=== PATIENT | female | born 1955 | race Caucasian/White ===

== ENCOUNTER 2016-06-29 01:44 | Inpatient (IN) | payer MEDICARE, MEDICAID ==
[~2016-06-29 01:44] MED LIST: ACETAMINOPHEN325 M2 PO; ADDERALL 10 MG10 MG; ADDERALL 15 MG15 MG; ADDERALL 20 MG20 MG; ADDERALL 30 MG30 MG PO; ADDERALL XR 3030 M1 PO; ADDERALL XR 3030 MG PO; ALBUTEROL17 GM; ALLEGRA ALLERG180 MG PO; ALLEGRA180 MG PO; ALLEGRA30 MG; ALLEGRA30 MG PO; ALLEGRA30 MG/5 ML; ALOE VERA237 ML PO; ALPRAZOLAM1 MG PO; AMOXICILLIN500 M PO; ARMOUR THYROID15 MG; ASPIRIN LOW STR81 MG PO; ASPIRIN81 M1 CH; ATARAX25 MG PO; ATARAX50 MG PO; ATENOLOL PO; ATENOLOL50 MG; ATENOLOL50 MG PO; AUGMENTIN 875-11 TAB PO; BACLOFEN; BACLOFEN10 MG; BACLOFEN10 MG PO; BACLOFEN20 M1 PO; BACLOFEN20 MG; BACLOFEN20 MG PO; BENADRYL ALLERG25 M PO; BENADRYL25 MG PO; BP MED; BRILINTA90 M1 PO; BUTABARBITAL; CATAPRES-T0.1 MG/24; CELEBREX100 MG PO; CLARITIN10 M2 PO; CLARITIN10 M6 PO; COLACE; CORTISPORIN EAR10 M RIGHT EAR; COUMADIN2 MG PO; COUMADIN5 MG; CYMBALTA30 MG; CYMBALTA60 MG; DEXTROAMPHETAMI15 MG PO; DIAZEPAM10 MG; DIAZEPAM10 MG PO; DOCUSATE SODIU1 EACH PO; DOXEPIN HCL25 M1 PO; DOXEPIN HCL50 MG PO; DURAGESIC1 PATC; DURAGESIC1 PATC TOP; DURAGESIC1 PATCH .; DURAGESIC1 PATCH .7 TOP; EFFEXOR XR75 MG PO; EFFEXOR50 MG; EFFEXOR75 MG PO; ELIMITE60 GM TP; EMBEDA 30-1.21 EACH PO; EPINEPHRIN0.15 MG/0. IM; FAMOTIDINE20 MG PO; FENTANYL C100 MCG/2; FENTANYL C100 MCG/2 IV; FEXOFENADINE H180 MG PO; FLEXERIL10 MG PO; FLONASE ALLERG9.9 ML NS; FLUOXETINE HCL60 MG PO; HYDROCODONE/APA1 TAB; IMITREX25 MG PO; KADIAN PO; KEFLEX500 MG PO; LAMICTAL100 MG PO; LEVAQUIN250 MG PO; LEVOTHYROXINE25 MCG; LEVOTHYROXINE25 MCG PO; LINDANE60 ML TP; LIPITOR80 M1 PO; LOPRESSOR50 MG; LUNESTA; LUNESTA2 MG; LYRICA50 MG PO; METOPROLOL PO; MONTELUKAST SOD10 M2 PO; MORPHINE SU15 MG/TAB PO; MORPHINE SULFAT15 MG PO; MORPHINE SULFAT30 M9 PO; NASONEX; NASONEX17 GM; NASONEX17 GM NS; NITROFURANTOIN100 M3 PO; NORCO 10/325 TA1 TAB; NORCO 10/325 TA1 TAB PO; NORCO 5/325 TAB1 TAB PO; OMNICEF300 MG PO; ORAP2 MG PO; OXYCONTIN10 MG; OXYCONTIN60 MG PO; OXYCONTIN80 M1 PO; PEPCID20 MG; PEPCID20 MG PO; PEPCID40 MG; PEPCID40 MG PO; PERCOCET 10 MG/1 TAB PO; PERCOCET 5/3251 TAB PO; PHENERGAN; PHENERGAN12.5 MG PO; PHENERGAN25 MG/SUPP; PHENERGAN25 MG/SUPP RC; PIMOZIDE PO; PROAIR HFA8.5 GM INH; PROTONIX20 MG; PROTONIX40 M1 PO; PROTONIX40 M2 PO; PROTONIX40 MG; PROTONIX40 MG PO; PROZAC20 M3 PO; Q TUSSIN PO; QVAR7.3 G; SENNA; SENNA PLUS TAB1 EAC1 PO; SINEMET; SINGULAIR10 M1 PO; STOOL SOFTENER100 M1 PO; STROMECTOL3 MG PO; SUBOXONE 8 MG-1 EAC1 SL; SYNTHROID; SYNTHROID25 MCG PO; SYNTHROID50 MC1 PO; SYNTHROID50 MCG PO; TENORMIN25 M1 PO; TENORMIN50 MG PO; TIZANIDINE HCL2 MG; TIZANIDINE HCL4 MG PO; TRIAMCINOLONE A15 G TP; TYLENOL TA325 MG/TA2 PO; VALIUM; VALIUM10 MG; VALIUM5 M1 PO; VENTOLIN HFA18 G2 PO; VITAMIN D-32000 UNIT; VITAMIN D1000 UNI1 PO; VITAMIN D1000 UNIT PO; XANAX0.5 M1; XANAX1 MG PO; ZANAFLEX; ZANAFLEX2 M; ZANAFLEX2 M PO; ZANAFLEX2 M1 PO; ZANAFLEX2 MG PO; ZANAFLEX4 M PO; ZANAFLEX4 MG PO; ZOFRAN ODT4 MG/UDTAB PO; ZOFRAN4 M1 PO; [UNRECOGNIZED DRUG - OTHER]; [UNRECOGNIZED DRUG - OTHER]; [UNRECOGNIZED DRUG - OTHER]
[2016-06-29 03:16] LABS: BASO % 0.7 % (0-2); EOS % 2.9 % (0-7); EOSINOPHIL ABSOLUTE COUNT 0.2 tho/cmm (0.0-0.7); HCT-HEMATOCRIT 40.5 % (34.0-49.0); HGB-HEMOGLOBIN 12.8 gm/dl (12.0-15.5); IMMATURE GRANULOCYTES ABSOLUTE 0.01 tho/cmm (0-0.03); IMMATURE GRANULOCYTES PERCENT 0.2 % (0-0.3); LYMPH % 25.2 % (20-45); LYMPH ABSOLUTE COUNT 1.5 tho/cmm (0.8-4.5); MCH (MEAN CORPUSCULAR HGB) 27.6 pg (28.0-32.0); MCHC MEAN CORPUSCULAR HGB CONC 31.6 % (32.0-36.0); MCV (MEAN CELL VOLUME) 87.5 fl (82.0-96.0); MEAN PLATELET VOLUME 10.3 cmc (9.4-12.4); MONO % 9.8 % (0-12); MONOCYTE ABSOLUTE COUNT 0.6 tho/cmm (0.0-1.2); NEUTROPHIL ABSOLUTE COUNT 3.5 tho/cmm (1.6-8.0); NEUTROPHIL-AUTOMATED 3.5 tho/cmm (1.6-8.0); NEUTROPHILS % 61.2 % (40-80); PLATELET COUNT 223 tho/cmm (150-450); RED BLOOD COUNT 4.63 mil/cmm (4.00-5.20); RED CELL DISTRIBUTION WIDTH 15.2 % (12.4-16.4); WHITE BLOOD COUNT 5.8 tho/cmm (4.0-10.0)
[2016-06-29 03:32] LABS: ALB/GLOB RATIO 0.8 (0.8-2.0); ALCOHOL (ETOH) <10 mg/dl (<10); ALKALINE PHOSPHATASE 107 U/L (33-138); ALT/SGPT 17 U/L (12-78); ANION GAP 9 mmol/L (0-20); AST/SGOT 26 U/L (10-40); BILIRUBIN,TOTAL 0.4 mg/dl (0-1.5); BLOOD UREA NITROGEN 14 mg/dl (6-24); CALCIUM 8.8 mg/dl (8.5-10.5); CARBON DIOXIDE-VENOUS 29 mmol/L (22-32); CHLORIDE 107 mmol/l (96-110); CREATININE 0.51 mg/dl (0.50-1.10); GLUCOSE 82 mg/dL (70-110); MAGNESIUM 2.2 mg/dl (1.3-2.6); POTASSIUM 3.3 mmol/L (3.7-5.1); SODIUM 142 mmol/L (135-145); eGFR VALUE FOR BLACK >90 mL/Min
[2016-06-29 03:35] LABS: TSH-THYROID STIMULATING HORM. 1.04 uIU/ml (0.40-3.80)
[2016-06-29 03:50] LABS: ACETAMINOPHEN LEVEL <3 ug/ml (10-30); SALICYLATE <2.8 mg/dl (2.8-20)
[2016-06-29 04:48] LABS: URINE BILIRUBIN NEGATIVE (NEG); URINE BLOOD NEGATIVE (NEG); URINE GLUCOSE (UA) NEGATIVE (NEG); URINE KETONE NEGATIVE (NEG); URINE LEUKOCYTE ESTERASE POSITIVE (NEG); URINE NITRITE POSITIVE (NEG); URINE PROTEIN NEGATIVE (NEG); URINE SPECIFIC GRAVITY 1.015 (1.003-1.030)
[2016-06-29 04:49] LABS: URINE APPEARANCE HAZY; URINE COLOR YELLOW
[2016-06-29 04:54] LABS: URINE BACTERIA 4+; URINE EPITHELIAL CELLS 0 /[HPF] (0-10); URINE RBC 0 /[HPF] (0-5)
[2016-06-29 06:59] LABS: C-REACTIVE PROTEIN 0.5 mg/dl (0-0.9); MAGNESIUM 2.2 mg/dl (1.3-2.6)
[2016-06-30 04:42] LABS: BASO % 1.4 % (0-2); BASO ABSOLUTE COUNT 0.1 tho/cmm (0.0-0.2); EOS % 4.4 % (0-7); EOSINOPHIL ABSOLUTE COUNT 0.2 tho/cmm (0.0-0.7); HCT-HEMATOCRIT 40.2 % (34.0-49.0); HGB-HEMOGLOBIN 12.6 gm/dl (12.0-15.5); IMMATURE GRANULOCYTES ABSOLUTE 0.01 tho/cmm (0-0.03); IMMATURE GRANULOCYTES PERCENT 0.2 % (0-0.3); LYMPH % 57.7 % (20-45); LYMPH ABSOLUTE COUNT 2.5 tho/cmm (0.8-4.5); MCH (MEAN CORPUSCULAR HGB) 27.8 pg (28.0-32.0); MCHC MEAN CORPUSCULAR HGB CONC 31.3 % (32.0-36.0); MCV (MEAN CELL VOLUME) 88.5 fl (82.0-96.0); MEAN PLATELET VOLUME 10.8 cmc (9.4-12.4); MONO % 9.2 % (0-12); MONOCYTE ABSOLUTE COUNT 0.4 tho/cmm (0.0-1.2); NEUTROPHIL ABSOLUTE COUNT 1.2 tho/cmm (1.6-8.0); NEUTROPHIL-AUTOMATED 1.2 tho/cmm (1.6-8.0); NEUTROPHILS % 27.1 % (40-80); PLATELET COUNT 228 tho/cmm (150-450); RED BLOOD COUNT 4.54 mil/cmm (4.00-5.20); RED CELL DISTRIBUTION WIDTH 16.2 % (12.4-16.4); WHITE BLOOD COUNT 4.4 tho/cmm (4.0-10.0)
[2016-06-30 04:53] LABS: ANION GAP 12 mmol/L (0-20); BLOOD UREA NITROGEN 8 mg/dl (6-24); CALCIUM 8.7 mg/dl (8.5-10.5); CARBON DIOXIDE-VENOUS 30 mmol/L (22-32); CHLORIDE 107 mmol/l (96-110); CREATININE 0.66 mg/dl (0.50-1.10); GLUCOSE 90 mg/dL (70-110); SODIUM 145 mmol/L (135-145); eGFR VALUE FOR BLACK >90 mL/Min
[2016-07-01] MEDS ORDERED: MACROBID 100 M100 M1 PO (12:26)
[2016-11-16] MEDS ORDERED: BRILINTA90 M1 PO (17:34)
[2016-11-16] MEDS ORDERED: MACROBID 100 M100 M1 PO (17:35)
[2016-11-16] MEDS ORDERED: SINGULAIR10 M1 PO (17:36)
[2016-11-16] MEDS ORDERED: NEOMYC-POLYM-DEX5 ML OT (17:37)
[2016-11-16] MEDS ORDERED: ASPIRIN81 M1 PO (17:38)
== END 2016-07-01 15:10 | DRG 896 ==
LOC: EDMED 01:44 → EMR2 05:49 → 5WE 06:45
PROVIDERS: Emergency Medicine; Internal Medicine; Registered Nurse; ADMIT Hospitalist
DX: F15.951 Other stimulant use, unspecified with stimulant-induced psychotic disorder with hallucinations (principal); J96.01 Acute respiratory failure with hypoxia; F11.20 Opioid dependence, uncomplicated; N39.0 Urinary tract infection, site not specified; F03.90 Unspecified dementia, unspecified severity, without behavioral disturbance, psychotic disturbance, mood disturbance, and anxiety; J98.6 Disorders of diaphragm; F41.0 Panic disorder [episodic paroxysmal anxiety]; F41.9 Anxiety disorder, unspecified; F42.9 Obsessive-compulsive disorder, unspecified; G24.9 Dystonia, unspecified; K21.9 Gastro-esophageal reflux disease without esophagitis; Z86.711 Personal history of pulmonary embolism; Z91.81 History of falling; I10 Essential (primary) hypertension; J45.909 Unspecified asthma, uncomplicated; E03.9 Hypothyroidism, unspecified; Z87.891 Personal history of nicotine dependence; E87.6 Hypokalemia; I25.10 Atherosclerotic heart disease of native coronary artery without angina pectoris; Z95.5 Presence of coronary angioplasty implant and graft; M43.6 Torticollis; I25.2 Old myocardial infarction; Z88.2 Allergy status to sulfonamides; Z88.8 Allergy status to other drugs, medicaments and biological substances; Z91.030 Bee allergy status; F32.9 Major depressive disorder, single episode, unspecified; Z98.1 Arthrodesis status; G89.29 Other chronic pain
CPT/HCPCS: G0480; J0696; J1650; J2280; J7030; J7050; P9612; Q9967

== ENCOUNTER 2016-08-01 20:48 | Emergency (ER) | payer MEDICARE, MEDICAID ==
[~2016-08-01 20:48] MED LIST changes: +MACROBID 100 M100 M1 PO
[2016-11-16] MEDS ORDERED: BRILINTA90 M1 PO (17:34)
[2016-11-16] MEDS ORDERED: MACROBID 100 M100 M1 PO (17:35)
[2016-11-16] MEDS ORDERED: SINGULAIR10 M1 PO (17:36)
[2016-11-16] MEDS ORDERED: NEOMYC-POLYM-DEX5 ML OT (17:37)
[2016-11-16] MEDS ORDERED: ASPIRIN81 M1 PO (17:38)
== END 2016-08-01 22:40 ==
LOC: EDMED 20:48
DX: I10 Essential (primary) hypertension (principal); F41.0 Panic disorder [episodic paroxysmal anxiety]; G89.29 Other chronic pain; M54.2 Cervicalgia; Z79.82 Long term (current) use of aspirin
CPT/HCPCS: J1170

== ENCOUNTER 2016-09-17 13:06 | Observation (INO) | payer MEDICARE, MEDICAID ==
[2016-09-17 13:38] LABS: BASO % 0.4 % (0-2); EOS % 0.4 % (0-7); HCT-HEMATOCRIT 38.6 % (34.0-49.0); HGB-HEMOGLOBIN 12.7 gm/dl (12.0-15.5); LYMPH % 14.5 % (20-45); LYMPH ABSOLUTE COUNT 0.8 tho/cmm (0.8-4.5); MCH (MEAN CORPUSCULAR HGB) 28.7 pg (28.0-32.0); MCHC MEAN CORPUSCULAR HGB CONC 32.9 % (32.0-36.0); MCV (MEAN CELL VOLUME) 87.1 fl (82.0-96.0); MEAN PLATELET VOLUME 10.5 cmc (9.4-12.4); MONO % 5.2 % (0-12); MONOCYTE ABSOLUTE COUNT 0.3 tho/cmm (0.0-1.2); NEUTROPHIL ABSOLUTE COUNT 4.2 tho/cmm (1.6-8.0); NEUTROPHIL-AUTOMATED 4.2 tho/cmm (1.6-8.0); NEUTROPHILS % 79.5 % (40-80); PLATELET COUNT 202 tho/cmm (150-450); RED BLOOD COUNT 4.43 mil/cmm (4.00-5.20); RED CELL DISTRIBUTION WIDTH 14.7 % (12.4-16.4); WHITE BLOOD COUNT 5.2 tho/cmm (4.0-10.0)
[2016-09-17 13:53] LABS: ALB/GLOB RATIO 0.8 (0.8-2.0); ALBUMIN 3.9 g/dl (3.5-5.0); ALKALINE PHOSPHATASE 109 U/L (33-138); ALT/SGPT 23 U/L (12-78); ANION GAP 17 mmol/L (0-20); AST/SGOT 33 U/L (10-40); BILIRUBIN,TOTAL 0.7 mg/dl (0-1.5); BLOOD UREA NITROGEN 8 mg/dl (6-24); CALCIUM 9.2 mg/dl (8.5-10.5); CARBON DIOXIDE-VENOUS 23 mmol/L (22-32); CHLORIDE 103 mmol/l (96-110); CREATININE 0.51 mg/dl (0.50-1.10); GLUCOSE 86 mg/dL (70-110); MAGNESIUM 2.2 mg/dl (1.8-2.6); SODIUM 140 mmol/L (135-145); eGFR VALUE FOR BLACK >90 mL/Min
[2016-09-17] MEDS ORDERED: CLARITIN10 M6 PO (13:59)
[2016-09-17] MEDS ORDERED: ELIQUIS5 M1 PO (13:59)
[2016-09-17 14:03] LABS: POTASSIUM 2.9 mmol/L (3.7-5.1)
[2016-09-17] MEDS ORDERED: PEPCID40 M1 PO (14:46)
[2016-09-17] MEDS ORDERED: SENNA-S TABLET1 EAC3 PO (14:47)
[2016-09-17] MEDS ORDERED: FLUTICASONE PRO16 G1 (14:47)
[2016-09-17] MEDS ORDERED: ASPIRIN325 M3 PO (14:49)
[2016-09-17] MEDS ORDERED: ALPRAZOLAM2 M3 PO (14:49)
[2016-09-17] MEDS ORDERED: BENADRYL25 M3 PO (14:49)
[2016-09-17] MEDS ORDERED: ZOFRAN ODT4 MG PO (14:50)
[2016-09-17] MEDS ORDERED: HYDROCORTISON28.411 TP (14:50)
[2016-09-17] MEDS ORDERED: MIRALAX17 G2 PO (14:51)
[2016-09-17] MEDS ORDERED: MORPHINE SU15 MG/TAB PO (14:53)
[2016-09-17 23:06] LABS: URINE BILIRUBIN NEGATIVE (NEG); URINE BLOOD NEGATIVE (NEG); URINE GLUCOSE (UA) NEGATIVE (NEG); URINE KETONE LARGE (NEG); URINE LEUKOCYTE ESTERASE NEGATIVE (NEG); URINE NITRITE POSITIVE (NEG); URINE PROTEIN SMALL (NEG); URINE SPECIFIC GRAVITY 1.015 (1.003-1.030)
[2016-09-17 23:08] LABS: URINE APPEARANCE HAZY; URINE COLOR YELLOW
[2016-09-17 23:19] LABS: URINE BACTERIA 3+; URINE EPITHELIAL CELLS 0-1 /[HPF] (0-10); URINE RBC 0 /[HPF] (0-5); URINE WBC 0-1 /[HPF] (0-5)
[2016-09-18 06:16] LABS: ANION GAP 10 mmol/L (0-20); BLOOD UREA NITROGEN 7 mg/dl (6-24); CALCIUM 8.8 mg/dl (8.5-10.5); CARBON DIOXIDE-VENOUS 26 mmol/L (22-32); CHLORIDE 109 mmol/l (96-110); CREATININE 0.57 mg/dl (0.50-1.10); GLUCOSE 72 mg/dL (70-110); SODIUM 141 mmol/L (135-145); eGFR VALUE FOR BLACK >90 mL/Min
[2016-09-18 06:19] LABS: TSH-THYROID STIMULATING HORM. 1.05 uIU/ml (0.40-3.80)
[2016-09-18 06:21] LABS: POTASSIUM 4.3 mmol/L (3.7-5.1)
[2016-09-19 08:42] LABS: ANION GAP 13 mmol/L (0-20); BLOOD UREA NITROGEN 6 mg/dl (6-24); CALCIUM 8.8 mg/dl (8.5-10.5); CARBON DIOXIDE-VENOUS 26 mmol/L (22-32); CHLORIDE 109 mmol/l (96-110); CREATININE 0.58 mg/dl (0.50-1.10); GLUCOSE 93 mg/dL (70-110); SODIUM 143 mmol/L (135-145); eGFR VALUE FOR BLACK >90 mL/Min
[2016-09-19 08:48] LABS: POTASSIUM 4.6 mmol/L (3.7-5.1)
[2016-09-20] MEDS ORDERED: CIPRO250 M2 PO (11:46)
[2016-09-20] MEDS ORDERED: POTASSIUM CHLO10 ME1 PO (11:47)
[2016-11-16] MEDS ORDERED: BRILINTA90 M1 PO (17:34)
[2016-11-16] MEDS ORDERED: MACROBID 100 M100 M1 PO (17:35)
[2016-11-16] MEDS ORDERED: SINGULAIR10 M1 PO (17:36)
[2016-11-16] MEDS ORDERED: NEOMYC-POLYM-DEX5 ML OT (17:37)
[2016-11-16] MEDS ORDERED: ASPIRIN81 M1 PO (17:38)
== END 2016-09-20 12:45 ==
LOC: EDMED 13:06 → EMR2 16:09 → CAR1 16:24
PROVIDERS: Emergency Medicine; Internal Medicine; ADMIT Hospitalist
DX: E87.6 Hypokalemia (principal); G89.29 Other chronic pain; M54.2 Cervicalgia; N39.0 Urinary tract infection, site not specified; B96.20 Unspecified Escherichia coli [E. coli] as the cause of diseases classified elsewhere; F41.9 Anxiety disorder, unspecified; F32.9 Major depressive disorder, single episode, unspecified; K22.4 Dyskinesia of esophagus; E03.9 Hypothyroidism, unspecified; F22 Delusional disorders; Z79.899 Other long term (current) drug therapy; Z79.82 Long term (current) use of aspirin; Z88.2 Allergy status to sulfonamides; Z88.8 Allergy status to other drugs, medicaments and biological substances
CPT/HCPCS: G0378; G8978-GP-CK; G8979-GP-CK; G8980-GP-CI; J0696; J3480